=== PATIENT | male | born 1995 | race Caucasian/White ===

== ENCOUNTER 2017-04-18 15:12 | Emergency (ER) | payer OTHER ==
--- NOTE | ~2017-04-18 | CT71 ---
[facility] A Service of [facility] RADIOLOGY TEXT RESULTS PATIENT: AINSLEY ESQUEDA LOCATION: SED : [birth year] UNIT #: [id number] AGE: [address]: Mich Demarco SEX: M ORDER DR: [id number] [address] [address] [id number] MR#: [id number] Acc #: [id number] NAME: AINSLEY ESQUEDA : 1995 SEX: M STUDY DATE/TIME: 04/18/2017 19:01 UNIT: SED ROOM: STUDY DESCRIPTION: CT Head Wo Contrast Attending Physician: Mich Demarco P.A.-C. Ordering Physician: Mich Demarco P.A.-C. Primary Care Physician: Primary Care Physician No MEDICAL IMAGING REPORT This report is preliminary unless electronic signature is present. EXAM Head CT without contrast, 04/18/2017 HISTORY Confusion and dizziness beginning this morning with acute onset of headache today. TECHNIQUE This CT exam was performed with one or more of the following radiation dose reduction techniques: automatic exposure control, adjustment of mA and/or kV according to patient size, and iterative reconstruction. FINDINGS Axial noncontrast images were obtained from the skull base to the vertex. Ventricular size and configuration are normal. There is no evidence of acute infarct or hemorrhage. There are no extraaxial fluid collections. No mass lesion or mass effect is seen. There are no skull fractures. IMPRESSION Normal noncontrast head CT. Dictated by... Alf Umanzor M.D. THIS IS AN ELECTRONICALLY VERIFIED REPORT Alf Umanzor M.D. at 04/19/2017 2:13 PM SONU/emelia TD: 04/19/2017 00:04 JOB #: [id number] [facility] A Service of [facility] RADIOLOGY TEXT RESULTS PATIENT: AINSLEY ESQUEDA LOCATION: SED : 93 UNIT #: [id number] AGE: [address]: Mich Demarco PAC SEX: M ORDER DR: MEDICAL IMAGING REPORT Page 1 of 1
--- NOTE | ~2017-04-18 | EKG ---
PATIENT: AINSLEY ESQUEDA UNIT #: [id number] Ventricular Rate: 77 BPM Atrial Rate: 77 BPM P-R Interval: 138 ms QRS Duration: 88 ms Q-T Interval: 378 ms QTC Calculation(Bezet): 427 ms P [place]: 1 degrees Calculated R [place]: 30 degrees Calculated T [place]: 16 degrees Diagnosis Line: Normal sinus rhythm with sinus arrhythmia Diagnosis Line: Normal ECG Diagnosis Line: No previous ECGs available Diagnosis Line: Confirmed by DALLAS ALEX MD ([id number]) on Diagnosis Line: 04/20/2017 8:03:50 AM INTERPRETING MD: ABI ARMSTRONG
[2017-04-18 18:18] LABS: BASOPHIL# 0.1 X10e3 (0-0.3); DIFF IND NO; EOSINOPHIL# 0.1 X10e3 (0-0.7); EOSINOPHIL% 1.5 % (0.0-7.0); HEMATOCRIT 42.9 % (38.0-50.0); HEMOGLOBIN 14.7 gm/dL (13.0-16.0); LYMPHOCYTE# 2.7 X10e3 (1.0-3.5); LYMPHOCYTE% 31.7 % (17.0-45.0); MEAN CELL VOLUME 90.9 FL (83-96); MEAN CORPUSCULAR HEMOGLOBIN 31.1 PG (28-34); MEAN CORPUSCULAR HGB CONC 34.2 g/dL (30-36); MONOCYTE# 0.6 X10e3 (0-1.0); MONOCYTE% 7.6 % (3.0-12.0); NEUTROPHIL% 58.2 % (40-75); PLATELET COUNT 245 X10e3 (140-420); RED BLOOD COUNT 4.72 X10e (3.90-5.60); RED CELL DISTRIBUTION WIDTH 14.1 % (11.0-15.5); WHITE BLOOD COUNT 8.5 X10e3 (4.0-10.5)
[2017-04-18 18:35] LABS: ALBUMIN SERUM 3.9 g/dL (3.5-5.0); BILIRUBIN, DIRECT 0.1 mg/dL (0.0-0.2); BILIRUBIN,INDIRECT 0.4 mg/dL (0.0-0.9); BILIRUBIN,TOTAL 0.5 mg/dL (0.2-2.0); BUN/CREATININE RATIO 8.75; CALCIUM SERUM 8.7 mg/dL (8.4-10.2); CREATININE SERUM 0.8 mg/dL (0.6-1.4); POTASSIUM 4.1 mmol/L (3.5-5.1); PROTEIN TOTAL SERUM 7.2 g/dL (6.0-8.3)
[2017-04-18 19:32] LABS: POC - CKMB <1.0 ng/mL (0.0-7.9); POC - MYOGLOBIN 45.6 ng/mL (0.0-169.0); POC - TROPONIN <0.05 ng/mL (<=0.05)
== END 2017-04-18 20:06 | disposition home or self-care (01) ==
LOC: SED 15:12
PROVIDERS: Physician Assistant
DX: G43.909 Migraine, unspecified, not intractable, without status migrainosus (principal); R07.9 Chest pain, unspecified; R41.0 Disorientation, unspecified; Z98.890 Other specified postprocedural states
CPT/HCPCS: 36415; 70450; 80048; 80076; 82553; 82947; 83874; 84484; 85025; 93005; 96365; 96375; 99284; J0780; J1200; J1885